=== PATIENT | female | born 1985 | race Caucasian/White ===

== ENCOUNTER 2017-11-07 14:49 | Emergency (ER) | payer OTHER ==
[~2017-11-07] VITALS: Ht 172.7 cm; Wt 63.5 kg
[2017-11-07 15:04] VITALS: BP 129/90
[2017-11-07 15:52] LABS: BASOPHILS % (AUTO) 0.3 % (0.0-2.0); EOSINOPHILS % (AUTO) 0.6 % (0.0-3.0); HEMATOCRIT 35.9 % (37.0-47.0); HEMOGLOBIN 12.8 G/DL (12.0-16.0); LYMPHOCYTES % (AUTO) 13.7 % (20.0-45.0); MEAN CORPUSCULAR VOLUME 92 FL (80-99); MONOCYTES % (AUTO) 5.8 % (1.0-10.0); NEUTROPHILS % (AUTO) 79.5 % (45.0-75.0); PLATELET COUNT 219 K/UL (150-450); RED BLOOD COUNT 3.89 M/UL (4.20-5.40); RED CELL DISTRIBUTION WIDTH 10.2 % (11.6-14.8); WHITE BLOOD COUNT 8.6 K/UL (4.8-10.8)
[2017-11-07 16:01] LABS: APPEARANCE,URINE CLEAR; BILIRUBIN, URINE NEGATIVE (NEGATIVE); COLOR,URINE PALE YELLOW; GLUCOSE, URINE (UA) NEGATIVE (NEGATIVE); KETONES,URINE NEGATIVE (NEGATIVE); LEUKOCYTE ESTERASE ,URINE NEGATIVE (NEGATIVE); NITRITE,URINE NEGATIVE (NEGATIVE); PH,URINE 7 (4.5-8.0); PROTEIN,URINE NEGATIVE (NEGATIVE); UROBILINOGEN,URINE NORMAL MG/DL (0.0-1.0)
[2017-11-07 16:26] LABS: ANION GAP 9 mmol/L (5-15); BLOOD UREA NITROGEN 5 mg/dL (7-18); CALCIUM 8.8 MG/DL (8.5-10.1); CARBON DIOXIDE 27 MMOL/L (21-32); CHLORIDE 102 MMOL/L (98-107); POTASSIUM 4.3 MMOL/L (3.5-5.1); SODIUM 137 MMOL/L (136-145)
[2017-11-07 16:31] LABS: ALANINE AMINOTRANSFERASE 17 U/L (12-78); ALBUMIN 3.7 G/DL (3.4-5.0); ALBUMIN/GLOBULIN RATIO 1.3 (1.0-2.7); ALKALINE PHOSPHATASE 81 U/L (46-116); ASPARTATE AMINO TRANSFERASE 19 U/L (15-37); BILIRUBIN,TOTAL 0.5 MG/DL (0.2-1.0)
[2017-11-07 17:30] VITALS: BP 131/76
[2017-11-07] MEDS ORDERED: Ketorolac 30mg Inj IV ONE (18:00)
[2017-11-07] MEDS ORDERED: AMPHETAMINE SAL20 MG PO (18:22)
[2017-11-07] MEDS ORDERED: XANAX0.5 MG ORAL (18:22)
[2017-11-07] MEDS ORDERED: KLONOPIN0.5 MG ORAL (18:22)
[2017-11-07] MEDS ORDERED: LORazepam Inj 2mg/ml 1ml IV ONE (20:00)
[2017-11-07 20:12] VITALS: BP 147/101
--- NOTE | 2017-11-07 20:46 | Consultation ---
Consult Note Consult Note GYNECOLOGY ER CONSULT NOTE CC: Heavy bleeding, incomplete HPI: Ruby is a 32yo s/p MedAb 2w ago presenting with heavy vaginal bleeding. [facility] MedAb at ~7-8w. She reports light bleeding after medication, with some small clots, but no heavy bleeding until yesterday when she had heavy bleeding with passage of clot. She called [facility] and pad counts were recommended, with recommendation to go to ED for >1 pad per hour for more than 2 hours. She reports that she didn 't quite meet the cutoff, but that today she soaked through multiple super tampons and several pads prompting her visit to the ED. Currently denies lightheadedness, dizziness, or palpitations. The PA in the ED attempted to remove intracervical contents, but was unsuccessful, prompting the request for D[employer]ODUCER consult. PMHx: ADHD and Anxiety PSHx: D&C x1 Meds: Adderall, Xanax, Klonopin (all prn) Allergies: NKDA OBHx: , TAB x 1 and current GYNHx: denies any previous DIGITAL CONTENT PRODUCER hx VITALS: Tmax 98.6, BP 131/76, P 96, RR 15, O2 100% RA EXAM: Gen: NAD, A&O, pleasant, no pallor noted Neuro: Intact grossly HEENT: MMM, OP clear Neck: No thyromegaly CV: RRR Pulm: No increased work of breathing, speaking in full sentences Abd: soft, NTND Pelvic: Speculum exam revealed ~20cc of clot and POC noted in vaginal vault, os open, with POC protruding from cervical canal. Ext: WWP, FROM Laboratory Tests Test 11/07/17 15:25 11/07/17 15:46 White Blood Count 8.6 K/UL (4.8-10.8) Red Blood Count 3.89 M/UL (4.20-5.40) L Hemoglobin 12.8 G/DL (12.0-16.0) Hematocrit 35.9 % (37.0-47.0) L Mean Corpuscular Volume 92 FL (80-99) Mean Corpuscular Hemoglobin 32.8 PG (27.0-31.0) H Mean Corpuscular Hemoglobin Concent 35.5 G/DL (32.0-36.0) Red Cell Distribution Width 10.2 % (11.6-14.8) L Platelet Count 219 K/UL (150-450) Mean Platelet Volume 8.1 FL (6.5-10.1) Neutrophils (%) (Auto) 79.5 % (45.0-75.0) H Lymphocytes (%) (Auto) 13.7 % (20.0-45.0) L Monocytes (%) (Auto) 5.8 % (1.0-10.0) Eosinophils (%) (Auto) 0.6 % (0.0-3.0) Basophils (%) (Auto) 0.3 % (0.0-2.0) Sodium Level 137 MMOL/L (136-145) Potassium Level 4.3 MMOL/L (3.5-5.1) Chloride Level 102 MMOL/L (98-107) Carbon Dioxide Level 27 MMOL/L (21-32) Anion Gap 9 mmol/L (5-15) Blood Urea Nitrogen 5 mg/dL (7-18) L Creatinine 1.0 MG/DL (0.55-1.30) Estimat Glomerular Filtration Rate > 60 mL/min (>60) Glucose Level 102 MG/DL (74-106) Calcium Level 8.8 MG/DL (8.5-10.1) Total Bilirubin 0.5 MG/DL (0.2-1.0) Aspartate Amino Transf (AST/SGOT) 19 U/L (15-37) Alanine Aminotransferase (ALT/SGPT) 17 U/L (12-78) Alkaline Phosphatase 81 U/L (46-116) Total Protein 6.5 G/DL (6.4-8.2) Albumin 3.7 G/DL (3.4-5.0) Globulin 2.8 g/dL Albumin/Globulin Ratio 1.3 (1.0-2.7) Human Chorionic Gonadotropin, Quant 608 mIU/mL (1-6) H Urine Color Pale yellow Urine Appearance Clear Urine pH 7 (4.5-8.0) Urine Specific [place] 1.005 (1.005-1.035) Urine Protein Negative (NEGATIVE) Urine Glucose (UA) Negative (NEGATIVE) Urine Ketones Negative (NEGATIVE) Urine Occult Blood 5+ (NEGATIVE) H Urine Nitrite Negative (NEGATIVE) Urine Bilirubin Negative (NEGATIVE) Urine Urobilinogen Normal MG/DL (0.0-1.0) Urine Leukocyte Esterase Negative (NEGATIVE) Urine RBC 2-4 /HPF (0 - 2) H Urine WBC 0-2 /HPF (0 - 2) Urine Squamous Epithelial Cells Few /LPF (NONE/OCC) Urine Bacteria Few /HPF (NONE) IMAGING: Report unavailable, but ED physician confirmed POC in cervical canal, and heterogeneous material in uterine cavity PROCEDURE: Cervix cleansed with betadine x 4. Sterile polyp forceps inserted into cervical canal and POC grasped and withdrawn without incident. Gentle sweep of uterine cavity with fundal pressure revealed no remaining intrauterine contents. Bleeding minimal at end of procedure. Assessment/Plan 32yo with incomplete AB, now s/p removal of intrauterine/intracervical contents. - [facility] - Intrauterine contents to be sent to Pathology - Pelvic rest x 2 weeks - Recommend Doxycycline 100mg BID x 7 days - Patient will be monitored in the ED for ~1h for recurrence of bleeding, and if heavy bleeding resumes will need D&C, however this is unlikely given the findings on exam - Return precautions given - Patient advised that she will likely continue to bleed somewhat for the next several weeks - Blood type O positive, no indication for Rhogam Thank you for this interesting consult. Signed: Sheila Ventura MD, MPH Sheila Ventura M.D. Nov 07, 2017 20:46
--- NOTE | 2017-11-07 20:55 | Emergency Room Report ---
History of Present Illness General Chief Complaint: Vaginal Source: Patient (Nicci Hernandez) Present Illness HPI 32-year-old female presents to the emergency department complaining of significant vaginal bleeding x2 days with uterine cramping. Patient reports that she took oral torsion he'll on the 12th of this month and had some scant spotting however hasn't had bleeding until male. Patient iced fevers or chills she reports feeling lightheaded and intermittently dizzy. Patient states she has been saturating absorbency pads every 2 hours and she is unable to stand on has discharge bleeding. She is with one prior to her most recent one. Patient does not know her blood type she has. Denies hx of STI. Denies CP, Palpitations, LOC, AMS, dizziness, Changes in Vision, Sensation, paresthesias, or a sudden severe headache. [facility] (Nicci Hernandez) Allergies: Coded Allergies: No Known Allergies (Unverified , 11/07/17) Patient History Past Medical History: see triage record Past Surgical History: none Pertinent Family History: none Last Menstrual Period: 08/27 : 2 Para: 0 Reviewed Nursing Documentation: PMH: Agreed, PSxH: Agreed (Nicci Hernandez) Nursing Documentation-PMH Past Medical History: No Stated History (Nicci Hernandez) Review of Systems All Other Systems: negative except mentioned in HPI (Nicci Hernandez) Physical Exam Vital Signs Date Time Temp Pulse Resp B/P (MAP) Pulse Ox O2 Delivery O2 Flow Rate FiO2 11/07/17 14:54 98.4 128 16 135/87 99 Room Air Sp02 EP Interpretation: reviewed, normal General Appearance: no apparent distress, alert, GCS 15, non-toxic Head: normocephalic, atraumatic Eyes: bilateral eye normal inspection, bilateral eye PERRL ENT: hearing grossly normal, normal voice Neck: full range of motion Respiratory: lungs clear, normal breath sounds, speaking full sentences Cardiovascular #1: tachycardia Gastrointestinal: normal bowel sounds, non tender, soft, non-distended Genitourinary: no CVA tenderness, adnexa normal, ext genitalia/vag normal, other - Multiple large clots in the vaginal vault and coming through the cervix. cervix is open and able to remove some clots from cervix, however continues to produce more. Musculoskeletal: back normal, gait/station normal, normal range of motion, non- tender Neurologic: alert, oriented x3, responsive, motor strength/tone normal, sensory intact, speech normal, grossly normal Psychiatric: judgement/insight normal, anxious Skin: normal color, no rash, warm/dry, well hydrated Lymphatic: no adenopathy (Nicci Hernandez) Medical Decision Making PA Attestation Dr. Orantes is my supervising Physician whom patient management has been discussed with. (Nicci Hernandez) Diagnostic Impression: Primary Impression: Incomplete with delayed or excessive hemorrhage ER Course 32-year-old female presents to the emergency department complaining of significant vaginal bleeding x2 days with uterine cramping. Patient reports that she took oral torsion he'll on the 12th of this month and had some scant spotting however hasn't had bleeding until male. Patient iced fevers or chills she reports feeling lightheaded and intermittently dizzy. Patient states she has been saturating absorbency pads every 2 hours and she is unable to stand on has discharge bleeding. She is with one prior to her most recent one. Patient does not know her blood type she has. Denies hx of STI. Denies CP, Palpitations, LOC, AMS, dizziness, Changes in Vision, Sensation, paresthesias, or a sudden severe headache. [facility] Ddx considered but are not limited to: Fibroid, ectopic , Fibroid, Spontaneous , Vital signs: are WNL, pt. is afebrile Pelvic Exam: Multiple large clots in the vaginal vault and coming through the cervix. cervix is open and able to remove some clots from cervix, however continues to produce more. H&PE are most consistent with: incomplete with excessive hemorrhage. ORDERS: -CBC, CMP: electrolytes ok, low RBC's but normal Hg. -Urine hcg- Positive -serum Hcg Quant: 608 - Blood/RH type and screen- see attached labs - O POSITIVE -Pelvic US complete- "No normal intrauterine identified. Vascular debris, presumed retained products of conception in the lower uterine segment." Per radiology ED INTERVENTIONS: - Toradol IV -1 Liter NS - Ativan OBGYN Consult to Dr. Navas Office , Dr. Audrey RUTHERFORD MD presented to ED and removed remaining POC, hemorrhaging subsequently resolved. Pt. stable to out pt. follow up at [facility] tomorrow. -- Pt to be d/c with PO Doxy. DISCHARGE: At this time pt. is stable for d/c to home with [facility]. Will provide printed patient care instructions, and any necessary prescriptions. Care plan and follow up instructions have been discussed with the patient prior to discharge. Labs Test 11/07/17 15:25 11/07/17 15:46 White Blood Count 8.6 K/UL (4.8-10.8) Red Blood Count 3.89 M/UL (4.20-5.40) Hemoglobin 12.8 G/DL (12.0-16.0) Hematocrit 35.9 % (37.0-47.0) Mean Corpuscular Volume 92 FL (80-99) Mean Corpuscular Hemoglobin 32.8 PG (27.0-31.0) Mean Corpuscular Hemoglobin Concent 35.5 G/DL (32.0-36.0) Red Cell Distribution Width 10.2 % (11.6-14.8) Platelet Count 219 K/UL (150-450) Mean Platelet Volume 8.1 FL (6.5-10.1) Neutrophils (%) (Auto) 79.5 % (45.0-75.0) Lymphocytes (%) (Auto) 13.7 % (20.0-45.0) Monocytes (%) (Auto) 5.8 % (1.0-10.0) Eosinophils (%) (Auto) 0.6 % (0.0-3.0) Basophils (%) (Auto) 0.3 % (0.0-2.0) Sodium Level 137 MMOL/L (136-145) Potassium Level 4.3 MMOL/L (3.5-5.1) Chloride Level 102 MMOL/L (98-107) Carbon Dioxide Level 27 MMOL/L (21-32) Anion Gap 9 mmol/L (5-15) Blood Urea Nitrogen 5 mg/dL (7-18) Creatinine 1.0 MG/DL (0.55-1.30) Estimat Glomerular Filtration Rate > 60 mL/min (>60) Glucose Level 102 MG/DL (74-106) Calcium Level 8.8 MG/DL (8.5-10.1) Total Bilirubin 0.5 MG/DL (0.2-1.0) Aspartate Amino Transf (AST/SGOT) 19 U/L (15-37) Alanine Aminotransferase (ALT/SGPT) 17 U/L (12-78) Alkaline Phosphatase 81 U/L (46-116) Total Protein 6.5 G/DL (6.4-8.2) Albumin 3.7 G/DL (3.4-5.0) Globulin 2.8 g/dL Albumin/Globulin Ratio 1.3 (1.0-2.7) Human Chorionic Gonadotropin, Quant 608 mIU/mL (1-6) Urine Color Pale yellow Urine Appearance Clear Urine pH 7 (4.5-8.0) Urine Specific [place] 1.005 (1.005-1.035) Urine Protein Negative (NEGATIVE) Urine Glucose (UA) Negative (NEGATIVE) Urine Ketones Negative (NEGATIVE) Urine Occult Blood 5+ (NEGATIVE) Urine Nitrite Negative (NEGATIVE) Urine Bilirubin Negative (NEGATIVE) Urine Urobilinogen Normal MG/DL (0.0-1.0) Urine Leukocyte Esterase Negative (NEGATIVE) Urine RBC 2-4 /HPF (0 - 2) Urine WBC 0-2 /HPF (0 - 2) Urine Squamous Epithelial Cells Few /LPF (NONE/OCC) Urine Bacteria Few /HPF (NONE) (Nicci Hernandez P.A.) ER Course I was involved with this patient's care. Ativan ordered. Dr. Abarca was called in and was able to remove POC. Patient improved after. O+ blood (Javier Orantes M.D.) CT/MRI/US Diagnostic Results CT/MRI/US Diagnostic Results : Imaging Test Ordered: Pelvic US Impression "No normal intrauterine identified. Vascular debris, presumed retained products of conception in the lower uterine segment. Occult ectopic not excluded. Correlation with trended beta-hCG, which follow-up and short-term interval follow-up ultrasound recommended.No evidence suggest ovarian torsion." -Per official radiology report- Please see report for specific details. (Nicci Hernandez P.A.) Last Vital Signs Date Time Temp Pulse Resp B/P (MAP) Pulse Ox O2 Delivery O2 Flow Rate FiO2 11/07/17 20:12 98.0 101 10 147/101 98 Room Air (Nicci Hernandez) Last Vital Signs Date Time Temp Pulse Resp B/P (MAP) Pulse Ox O2 Delivery O2 Flow Rate FiO2 11/07/17 21:45 98.2 65 15 128/84 98 Room Air Status: improved (Javier Orantes M.D.) Disposition: HOME, SELF-CARE Condition: Improved Scripts Lorazepam* (ATIVAN*) 1 Mg Tablet 1 MG ORAL BEDTIME, #2 TAB Prov: Nicci Hernandez 11/07/17 Doxycycline Hyclate* (VIBRAMYCIN*) 100 Mg Capsule 100 MG ORAL EVERY 12 HOURS for 7 Days, #14 CAP 0 Refills Prov: Nicci Hernandez 11/07/17 Referrals: DIDIER MITCHELL (PCP) Departure Forms: Return to Work Return to Work Date: Nov 11, 2017 Work Restrictions: None Return to Full Activity: Nov 11, 2017 Patient Instructions: Incomplete Miscarriage Additional Instructions: Take medications as directed. Follow up with a OBGYN within 48 Hours , even if your symptoms have resolved. Return sooner to ED if new symptoms occur, or current symptoms become worse. - Please note that this Emergency Department Report was dictated using [employer] professor technology software, occasionally this can lead to erroneous entry secondary to interpretation by the dictation equipment. Nicci Hernandez Nov 07, 2017 20:55 Javier Orantes M.D. Nov 12, 2017 06:43
[2017-11-07] MEDS ORDERED: ATIVAN1 MG ORAL ×2 (20:56→20:57)
[2017-11-07] MEDS ORDERED: VIBRAMYCIN100 MG ORAL ×2 (20:56→20:57)
[2017-11-07 21:45] VITALS: BP 128/84
--- NOTE | 2017-11-08 11:39 | Diagnostic Imaging Report ---
Indication: Pain. Positive test. Technique: Transabdominal and endovaginal pelvic ultrasound was performed. Findings: Uterus measures 8.4 x 4.8 x 4.5 cm. There is vascular debris, presumed retained products of conception in the lower uterine segment/cervix. Right ovary measures 2.7 x 2.9 x 2.1 cm, 12 mL. Multiple small follicles noted. Left ovary measures 3.6 x 3.2 x 1.5 cm, 9 mL. Question small corpus luteum cyst measuring 1.1 cm in diameter. No evidence to suggest ovarian torsion. IMPRESSION: No normal intrauterine identified. Vascular debris, presumed retained products of conception in the lower uterine segment. Occult ectopic not excluded. Correlation with trended beta-hCG, which follow-up and short-term interval follow-up ultrasound recommended. No evidence suggest ovarian torsion. This corresponds with the [facility] preliminary report.
== END 2017-11-07 21:45 | disposition home or self-care (01) ==
LOC: EMR 15:45
DX: O03.1 Delayed or excessive hemorrhage following incomplete spontaneous abortion (principal); F90.9 Attention-deficit hyperactivity disorder, unspecified type; F41.9 Anxiety disorder, unspecified; Z79.899 Other long term (current) drug therapy
CPT/HCPCS: 36415; 76830; 76856; 80053; 81003; 84702; 85025; 86850; 86900; 86901; 96361; 96374; 96375; 99284; J1885